=== PATIENT | female | born 1970 | race Two or more races ===

== ENCOUNTER 2021-11-26 05:30 | Emergency (ER) | payer MEDICAID, OTHER ==
[~2021-11-26] VITALS: Ht 157.5 cm; Wt 57.6 kg
[2021-11-26 07:37] VITALS: BP 147/91
[2021-11-26 07:44] LABS: Basophils # (auto) 0.1 10 ^3/uL (0-0.2); Eosinophils # (auto) 0.2 10 ^3/uL (0-0.8); Hematocrit 35.4 % (36.0-46.0); Hemoglobin 12.2 g/dL (12.2-16.2); Lymphocytes % (auto) 23.1 % (10.0-50.0); Mean Corpuscular Hemoglobin 31.3 pg (28.0-32.0); Mean Corpuscular Hgb Conc. 34.3 g/dL (32.0-36.0); Mean Corpuscular Volume 91.3 fL (80.0-100.0); Monocytes # (auto) 0.4 10 ^3/uL (0-1.3); Monocytes % (auto) 4.9 % (0.0-12.0); Neutrophils # (auto) 6.1 10 ^3/uL (1.6-8.6); Red Blood Cells 3.88 10^6/uL (4.0-5.20); White Blood Cell 8.9 10^3/uL (4.4-10.8)
[2021-11-26 07:46] LABS: Red Cell Distribution Width 20.4 % (11.8-14.3)
[2021-11-26 08:04] LABS: Albumin 3.9 g/dL (3.4-5.0); Calcium 9.4 mg/dL (8.5-10.1); Potassium 3.8 mmol/L (3.5-5.1)
[2021-11-26 08:08] LABS: BUN/Creatinine Ratio 13.8; Bilirubin, Total 1.2 mg/dL (0.2-1.0); Total Protein 8.8 g/dL (6.4-8.2)
[2021-11-26 08:44] LABS: Urine Bacteria MOD /hpf (None Seen); Urine Blood TRACE /uL (Negative); Urine Mucus FEW (None Seen); Urine Specific Gravity 1.016 (1.001-1.035); Urine WBC 250 /hpf (0 - 5)
[2021-11-26] MEDS ORDERED: KETOROLAC TROMETH 60MG/2ML VIAL IM ONE (08:45)
[2021-11-26] MEDS ORDERED: LIDOCAINE 1% HCL (LOCAL ANESTH.) INJ 20ML MDV ONE (08:57)
[2021-11-26] MEDS ORDERED: cefTRIAXone SOD 1,000 MG VL IM ONE (09:00)
[2021-11-26] MEDS ORDERED: LISI-716 PO (09:10)
[2021-11-26] MEDS ORDERED: IBUP600T27 PO (09:10)
[2021-11-26] MEDS ORDERED: SULF400T11 PO (09:10)
[2021-11-26] MEDS ORDERED: LIDOCAINE 1% HCL (LOCAL ANESTH.) INJ 20ML MDV ID ONE (09:15)
== END 2021-11-26 09:09 | disposition home or self-care (01) ==
LOC: ER 05:30
DX: N39.0 Urinary tract infection, site not specified (principal); K76.0 Fatty (change of) liver, not elsewhere classified; I10 Essential (primary) hypertension; Z79.1 Long term (current) use of non-steroidal anti-inflammatories (NSAID); Z79.899 Other long term (current) drug therapy
CPT/HCPCS: 36415; 76705; 80053; 81001; 83690; 85025; 93005; 96372; 99285; J0696; J1885; J2001